=== PATIENT | female | born 1950 | race Caucasian/White ===

== ENCOUNTER 2023-12-26 17:16 | Emergency (ER) | payer MEDICARE, SELFPAY ==
[2023-12-26 17:24] VITALS: BP 168/101; PULSE 75; TEMP 36.6; O2SAT 96
[2023-12-26 17:28] VITALS: BP 180/98
--- NOTE | 2023-12-26 17:30 | ED.GENADUL_ITS ---
Discharge Plan Disposition Patient Disposition: Home Condition: Stable Discharge Details Clinical Impression: Tick bite Primary Care Provider: Unknown,Unknown ED Provider: Chalino Aleman Home Meds and New Rx's Prescriptions: No Action estradiol 10 mcg insert 10 mcg vaginal .weekly Discharge Instructions Instructions: Doxycycline (By mouth), Tick Bite (ED) Additional Instructions: You were seen in the emergency department for your tick bite of your left thigh. You state it was an engorged deer tick, it was removed today successfully by you. It is reasonable to trial of 1 dose 200 mg doxycycline to prophylax Lyme disease. You may want to get a tick panel test via your primary care provider in about a week, please return to the ED for any severe fevers, body aches, profound lethargy, chest pain and palpitations. Discharge Data Discharge Date/Time-TO BE ENTERED AT DEPARTURE: 12/26/23 17:59 HPI General Date/Time Provider Initiated Documentation: 12/26/23 17:29 . HPI Narrative: 73 year-old female presents to ED today by POV/ambulating with a chief complaint of tick bite to L lateral calf, deer tick that was engorged with onset today- she removed it, not likely attached more than a few hours. Quality described as painful, with tiny ecchymosis around bite site <1cm, no radiation to body aches, fever, lethargy, palpitations, purulent drainage. Severity is described as mild. Palliating factors include nothing specific. Provoking factors include nothing specific. 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 Patient not anticoagulated. Related Data Home Medications Medication Instructions Recorded Confirmed estradiol 10 mcg vaginal insert 10 mcg vaginal .weekly 12/26/23 12/26/23 Allergies Allergy/AdvReac Type Severity Reaction Status Date / Time erythromycin base Allergy Other (See Verified 12/26/23 17:28 [From Erythrocin] Comment) Penicillins Allergy Skin Rash Verified 12/26/23 17:28 General Stated Complaint: InsectBite TORI: 4 Review of Systems All systems reviewed & are unremarkable except as noted in HPI and below Exam Narrative Exam Narrative: GENERAL APPEARANCE: Well-nourished, non-toxic, awake and alert, atraumatic, no acute distress. SKIN: Warm, pink, dry, intact, tiny insect bite in the left proximal lateral calf with less than 1 cm ecchymosis around it, no target lesion, no joint swelling, no warmth to touch, no purulent drainage HEAD: Normocephalic, atraumatic, normal hair distribution for gender/age. EYES: Pupils PERRLA, EOMs intact without nystagmus, normal conjunctiva, no exudates on lids/lashes. ENT: Nares patent, no circumoral cyanosis, no facial swelling NECK: Supple, trachea midline, painless cervical ROM. LUNGS/CHEST: Non-labored respirations, normal A/P diameter, symmetrical expansion, no chest wall deformity HEART (CV/PV): No peripheral edema, no JVD. ABDOMEN: Soft, non-distended, no guarding. MSK: Normal ROM, no swelling/deformity to bilateral UEs or LEs, moving all extremities without weakness, no cyanosis, spine midline without tenderness, normal curvature. NEURO: Mental Status AAOx4 - alert to person, place, time, events No facial droop, no forehead involvement. Motor: No focal weakness - strength 5/5 in bilateral UEs and LEs, proximal and distal, symmetric. Sensory: sensation intact to light touch globally. Gait normal: patient ambulated without ataxia into ED room. PSYCH: euthymic, cooperative, pleasant, appropriate speech Course Vital Signs Vital signs: Vital Signs Temperature 36.6 C 12/26/23 17:24 Pulse 75 12/26/23 17:24 Blood Pressure 168/101 H 12/26/23 17:24 Pulse Oximetry 96 12/26/23 17:24 Temperature 36.6 C 12/26/23 17:24 Temperature Source Skin 12/26/23 17:24 Pulse 75 12/26/23 17:24 Respiratory Effort Normal 12/26/23 17:26 Blood Pressure 180/98 H 12/26/23 17:28 Blood Pressure Position Sitting 12/26/23 17:24 Pulse Oximetry 96 12/26/23 17:24 Oxygen Delivery Method Room Air 12/26/23 17:24 Oxygen Flow Rate 0 12/26/23 17:24 Medical Decision Making This dictation utilizes [employer] dictation software and may contain unedited grammatical errors. 73 y/o F presents to ED today with a chief complaint of deer tick bite to L lateral calf. No fevers arthralgias, no chest pain, no palpitations- likely was only on today, but was engorged. Patients' medical history: History of anaplasmo sis. Family and social history: Noncontributory. Pertinent exam findings / vital signs include SKIN: Warm, pink, dry, intact, tiny insect bite in the left proximal lateral calf with less than 1 cm e cchymosis around it, no target lesion, no joint swelling, no warmth to touch, no purulent drainage. Differential / pathologies of concern include erythema migrans, tick bite. Diagnostic studies of: -Not performing tick panel at this time, likely has not reached occupation. Interventions of: -200 mg prophylactic doxycycline. ED Course/Assessment/Plan: 73-year-old female had a deer tick bite on her left calf, requesting doxycycline prophylaxis which was given. I counseled her on possibly following up with her PCP next week for routine tick panel. Patient verbalized understanding of the plan, strict return criteria for developing severe arthralgias joint pain, chest pain, palpitations. Findings not consistent with overt erythema migrans or systemic infection, abscess. Disposition of tick bite. Patient verbalized understanding of the plan and return to ED criteria and engaged in shared decision making. Medical Records Medical records reviewed: Yes I reviewed the patient's medical records. Quality:[facility] Health Related Social Needs: No Data to Display [facility] All Active Problems (Updated 12/26/23 @ 17:36 by MALATHI Fay) Tick bite (Acute) Social History Smoking/Tobacco Use Status: Never Smoking risk assessment performed?: Yes Alcohol Intake: never Drug use: Never
[2023-12-26] MEDS: Doxycycline Hyclate 100 MG CAP 200 MG PO (17:55)
== END 2023-12-26 17:59 | disposition home or self-care (01) ==
LOC: ER 17:44
PROVIDERS: Emergency Provider Physician Assistant
DX: S80.861A Insect bite (nonvenomous), right lower leg, initial encounter (principal); W57.XXXA Bitten or stung by nonvenomous insect and other nonvenomous arthropods, initial encounter; Y93.89 Activity, other specified; Y92.89 Other specified places as the place of occurrence of the external cause
CPT/HCPCS: 99283

== ENCOUNTER 2024-12-15 09:58 | Emergency (ER) | payer MEDICARE, SELFPAY ==
[2024-12-15 10:10] VITALS: BP 163/95; PULSE 89; RESP 16; TEMP 36.4; O2SAT 98
--- NOTE | 2024-12-15 10:39 | ED.GENADUL_ITS ---
Discharge Plan Disposition Patient Disposition: Home Condition: Good Discharge Details Clinical Impression: Urticarial rash Primary Care Provider: Leona Christensen ED Provider: Ana Maria Stahl Home Meds and New Rx's Prescriptions: New prednisone 20 mg tablet 40 mg PO DAILY 3 Days Qty: 6 0RF No Action estradiol 10 mcg insert 10 mcg vaginal .weekly Discharge Instructions Instructions: Allergic Reaction ED Additional Instructions: As we discussed, your history and the changing nature of your rash has me primarily concerned for an exposure and possible reaction. Plan to treat with steroids. You are given a dose here today will take the next dose tomorrow morning. As you have also had several exposures to tickborne illnesses, I have ordered a tick and Lyme panel which will take a few days to return. As we discussed, given your presentation, I believe this is more likely associated with exposure rather than acute tickborne illness and we will hold off on any further doxycycline at this point. Please continue to monitor symptoms and take notes of any things that exacerbate symptoms or change them. Please return to the emergency department should you develop any new or worsening symptoms. Please follow-up with primary care in the next 1 to 2 weeks for reevaluation. We should call you with any positive results in the next 3 to 5 days. Discharge Data Discharge Date/Time-TO BE ENTERED AT DEPARTURE: 12/15/24 11:40 HPI General Date/Time Provider Initiated Documentation: 12/15/24 10:10 . Limitations to Documentation: no limitations . Information obtained by: patient, family () and RN notes reviewed . History of Present Illness 74 year old F presents to the emergency department with the chief complaint of generalized pruritic rash, described as moderate, Quality is described as other (itching), Patient started experiencing this hour(s) (woke with rash this morning) and it has been constant. No relieving factors improve symptom(s), No exacerbating factors reported . Patient notes no other symptoms.. Patient did receive the following treatments prior to arrival, none Related Data Home Medications ?Medication ?Instructions ?Recorded ?Confirmed estradiol 10 mcg vaginal insert 10 mcg vaginal .weekly 12/26/23 12/15/24 prednisone 20 mg tablet 40 mg (2 x 20 mg) PO DAILY 3 days 12/15/24 #6 tabs Previous Rx's ?Medication ?Instructions ?Recorded prednisone 20 mg tablet 40 mg (2 x 20 mg) PO DAILY 3 days 12/15/24 #6 tabs Allergies Allergy/AdvReac Type Severity Reaction Status Date / Time erythromycin base (From Allergy Other (See Verified 12/15/24 10:13 Erythrocin) Comment) Penicillins Allergy Skin Rash Verified 12/15/24 10:13 General Stated Complaint: RashLesion TORI: 3 Review of Systems Constitutional Constitutional: Reports as per HPI, Denies chills, Denies fatigue, Denies fever(s), Denies headache(s), Denies lethargy and Denies malaise ENT Ears, Nose, Mouth, and Throat: Denies headache(s) Cardiovascular Cardiovascular: Reports as per HPI, Denies chest pain and Denies dyspnea Respiratory Respiratory: Reports as per HPI, Denies cough and Denies dyspnea Integumentary/Breasts Skin/Breast: Reports as per HPI Neurologic Neurologic: Denies headache(s) Endocrine Endocrine: Denies fatigue Exam Const General: cooperative, healthy appearing, comfortable and no acute distress Nutritional Appearance: average body habitus and well nourished Orientation: alert and awake [facility] Face and sinus: normal facial exam, face symmetric, no fluctuance and no lacerations Mouth: oral mucosae normal, lip normal, tongue normal, oropharynx normal and no muffled voice Teeth and gingiva: dentition normal Throat: posterior oropharynx normal, tonsils normal and uvula midline Eyes General: appearance normal, both eyes and all related structures Neck Neck: normal visual inspection Chest Chest: other (scattered raised pink areas consistent with urticaria) Resp Effort & Inspection: normal respiratory effort, able to speak in complete sentences and no respiratory distress Auscultation: clear to auscultation bilaterally Cardio Rate: regular rate Rhythm: regular rhythm Heart Sounds: S1 normal and S2 normal GI Inspection: other (rash) Skin Rashes: rashes noted (diffuse along abdomen, chest, BLE, BUE) Neuro General: patient alert and patient awake Cognition: normal cognition Speech: speech normal Gait: normal gait Course Vital Signs Vital signs: Vital Signs Temperature 36.4 C 12/15/24 10:10 Pulse 89 12/15/24 10:10 Respiratory Rate 16 12/15/24 10:10 Blood Pressure 163/95 H 12/15/24 10:10 Pulse Oximetry 98 12/15/24 10:10 Temperature 36.4 C 12/15/24 10:10 Temperature Source Oral 12/15/24 10:10 Pulse 89 12/15/24 10:10 Respiratory Rate 16 12/15/24 10:10 Blood Pressure 163/95 H 12/15/24 10:10 Pulse Oximetry 98 12/15/24 10:10 Oxygen Delivery Method Room Air 12/15/24 10:10 Oxygen Flow Rate 0 12/15/24 10:10 Medical Decision Making Patient is a pleasant 74 year old female, accompanied by her , presenting with chief complaint of a rash. She reports that yesterday she went to bed without having any concerns. She and her both suffered from mild GI upset yesterday which sounds to be baseline for them and associated with possible hotdogs. She reports that this morning she woke noting a diffuse itchy raised pink rash. Unclear what she may have been exposed to. She does report that she was bitten by a tick few weeks ago and did take the empiric 200 mg dosing of doxycycline. States that she has had several tick exposures but no confirmed tickborne illness. Denies feeling systemically ill. No fevers or chills. No cough, congestion, body aches. On exam, patient appears nontoxic. She does have scattered irregularly shaped raised pink lesions that she will intermittently be itching. While patient feels like there is some on her face, this is not objectively noted. Of note, when I first evaluated her I did not, the arms and then the seem to subside, seeing a waxing and waning pattern and some movement of these over the course of her visit. Rash spares the palms and seems to be more sparse on the back. The appearance is most consistent with urticaria. Patient was primarily concerned for measles or RMSF. She has not had any known exposure to either and with her otherwise feeling well, without any systemic s ymptoms, I find it difficult to think that these could be on the differential at this point. I not see any other indicators such as enanthem, K[place] spots. She is afebrile. Has these are itchy and she is otherwise feeling well, with multiple possible exposures including exposure brought into bed by her dog, worked in the garden yesterday, versus other unknown source, I find allergic reaction more likely. Did not see any evidence to suggest anaphylaxis. No respiratory or GI involvement. As patient was previously advised to complete tick and Lyme testing is not have this completed, particularly given her recent exposure, we will send this out but we will hold off on any doxycycline treatment at this point based on level of concern in the differential diagnoses. Instead, we will treat with a short course of prednisone. I did encourage close follow-up with primary care as well as very strict return precautions. She is aware that this may be the onset of something and that it should something change she will come back. We did discuss supportive care. She will continue to monitor her symptoms and try to identify any provoking factors. All her questions and concerns were addressed and she is agreement this plan. I advised that we will call her with any positive results as soon as these have returned. This documentation was generated using [employer] dictation system, please disregard any oddities of phrase or misspellings. Quality:[facility] Health Related Social Needs: No Data to Display PFSH All Active Problems (Updated 12/15/24 @ 11:19 by MALATHI Ordonez) Urticarial rash (Acute) Social History Smoking/Tobacco Use Status: Never Smoking risk assessment performed?: Yes Alcohol Intake: current Alcohol Intake frequency: 0-2 drinks per day Drug use: Never PAWSS Have you Been Recently Intoxicated or Drunk Within the Last 30 days?: No Have you Ever Experienced Previous Episodes of Alcohol Withdrawal?: No Have you ever Experienced Withdrawal Seizures?: No Have you ever Experienced Delirium Tremens(DT)s?: No Have you ever undergone Alcohol Rehabilitation Treatment (i.e, inpt ot outpatient treatment programs)?: No Have you ever Experienced Blackouts?: No Have you ever Combined Alcohol with other Downers within the last 90 days?: No Have you ever Combined Alcohol with any other Substance of Abuse during the last 90 days?: No Result: 0
[2024-12-15 11:20] VITALS: BP 160/80; PULSE 89; RESP 16; TEMP 36.6; O2SAT 98
[2024-12-15] MEDS: predniSONE 20 MG TAB 40 MG PO (11:27)
[2024-12-16 10:23] LABS: Lyme Ab w Rflx to Lyme Confirm Negative (Negative)
[2024-12-18 01:35] LABS: Anaplasma phagocytophilum Negative (Negative); B. miyamotoi PCR Negative (Negative); Babesia divergens/MO-1 Negative (Negative); Babesia duncani Negative (Negative); Babesia microti Negative (Negative); Ehrlichia chaffeensis Negative (Negative); Ehrlichia ewingii/canis Negative (Negative); Ehrlichia muris eauclairensis Negative (Negative)
== END 2024-12-15 11:40 | disposition home or self-care (01) ==
PROVIDERS: Emergency Provider Physician Assistant; PCP Nurse Practitioner Family
DX: L50.9 Urticaria, unspecified (principal)
CPT/HCPCS: 99283 ×2; 87798; 86618; J7512